=== PATIENT | male | born 2000 | race Caucasian/White ===

== ENCOUNTER 2020-05-16 03:51 | Emergency (ER) | payer SELFPAY ==
[~2020-05-16] VITALS: Ht 172.7 cm; Wt 106.6 kg
[2020-05-16 03:59] VITALS: Ht 172.7 cm; Wt 106.6 kg
[2020-05-16 04:37] LABS: UA SPECIFIC GRAVITY >=1.030 (1.005-1.035); microscopic required? NO; urine erythrocyte NEGATIVE (NEGATIVE)
[2020-05-16 04:56] LABS: CALCIUM 9.6 mg/dL (8.5-10.1); CARBON DIOXIDE 27.4 mmol/L (21-32); CHLORIDE SERUM 103 mmol/L (98-107); GFR1 > 60 mL/min; GLUCOSE SERUM 108 mg/dL (74-106); POTASSIUM SERUM 4.2 mmol/L (3.5-5.1); SODIUM SERUM 139 mmol/L (136-145)
[2020-05-16 05:03] LABS: ALBUMIN 4.4 g/dL (3.4-5.0); ALKALINE PHOSPHATASE 104 U/L (46-116); ALT/SGPT 82 U/L (16-63); AST/SGOT 33 U/L (15-37); BILIRUBIN TOTAL 0.69 mg/dL (0.20-1.00); TOTAL PROTEIN, SERUM 8.5 g/dL (6.4-8.2)
[2020-05-16 05:08] LABS: BASOPHIL % 0.5 % (0-2); PLATELET COUNT 315 x10^3mcL (130-400); RED CELL DISTRIBUTION WIDTH 13.1 % (11.5-14.5)
[2020-05-16 05:44] VITALS: BP 128/62
== END 2020-05-16 05:44 | disposition home or self-care (01) ==
LOC: ED 03:51
PROVIDERS: Emergency Medicine
DX: R10.32 Left lower quadrant pain (principal); E78.00 Pure hypercholesterolemia, unspecified

== ENCOUNTER 2020-05-17 15:35 | Emergency (ER) | payer SELFPAY ==
[~2020-05-17] VITALS: Ht 172.7 cm; Wt 101.2 kg
[2020-05-17 15:41] VITALS: Ht 172.7 cm; Wt 101.2 kg
[2020-05-17 17:25] VITALS: BP 139/79
== END 2020-05-17 17:25 | disposition home or self-care (01) ==
LOC: ED 15:35
DX: R20.2 Paresthesia of skin (principal); M54.5 Low back pain; E78.00 Pure hypercholesterolemia, unspecified

== ENCOUNTER 2020-06-25 12:56 | Emergency (ER) | payer SELFPAY ==
[~2020-06-25] VITALS: Ht 172.7 cm; Wt 104.3 kg
[2020-06-25 14:22] VITALS: BP 132/87; Ht 172.7 cm; Wt 104.3 kg
== END 2020-06-25 16:54 | disposition home or self-care (01) ==
LOC: ED 12:56
DX: N48.1 Balanitis (principal); E78.00 Pure hypercholesterolemia, unspecified
CPT/HCPCS: 82962